=== PATIENT | male | born 1985 | race Caucasian/White ===

== ENCOUNTER 2023-12-15 12:04 | Emergency (ER) | payer BC, MEDICAID ==
[~2023-12-15] VITALS: Ht 185.4 cm; Wt 84.4 kg
[2023-12-15] MEDS ORDERED: AMOX-427 PO (12:33)
[2023-12-15 12:40] VITALS: BP 117/82; TEMP 98.5; O2SAT 96
== END 2023-12-15 12:40 | disposition home or self-care (01) ==
LOC: ER 12:10
DX: K02.9 Dental caries, unspecified (principal); Z88.8 Allergy status to other drugs, medicaments and biological substances

== ENCOUNTER 2025-02-03 09:55 | Emergency (ER) | payer BC, MEDICAID ==
[~2025-02-03] VITALS: Ht 185.4 cm; Wt 81.6 kg
[~2025-02-03 09:55] MED LIST: AMOX-427 PO
[2025-02-03 10:04] VITALS: BP 112/82; TEMP 98.4
[2025-02-03 10:38] VITALS: O2SAT 98
== END 2025-02-03 10:39 | disposition home or self-care (01) ==
LOC: ER 09:57
DX: S01.119D Laceration without foreign body of unspecified eyelid and periocular area, subsequent encounter (principal); Z48.02 Encounter for removal of sutures; Z60.2 Problems related to living alone; X58.XXXD Exposure to other specified factors, subsequent encounter